=== PATIENT | female | born 1940 | race Hispanic/Latino ===

== ENCOUNTER → 2022-03-28 | Outpatient (CLI) | payer MEDICARE | LOC: RESP 10:18 | PROVIDERS: ATTEND Internal Medicine | DX: R06.00 Dyspnea, unspecified (principal) | CPT/HCPCS: 94060; 94640 ==

== ENCOUNTER → 2022-03-28 | Outpatient (CLI) | payer MEDICARE | LOC: CT 09:59 | PROVIDERS: ATTEND Internal Medicine | DX: R91.8 Other nonspecific abnormal finding of lung field (principal) | CPT/HCPCS: 71250 ==